=== PATIENT | female | born 1960 | race Caucasian/White ===

== ENCOUNTER 2020-12-19 20:45 | Emergency (ER) | payer BC | END 2020-12-20 00:21 | disposition home or self-care (01) | LOC: ER1 20:45 | DX: Z00.00 Encounter for general adult medical examination without abnormal findings (principal); I51.9 Heart disease, unspecified; Z90.710 Acquired absence of both cervix and uterus | CPT/HCPCS: 99284 ==

== ENCOUNTER → 2021-05-03 | Outpatient (CLI) | payer BC ==
[2021-05-03 12:46] LABS: HEMOGLOBIN 14.6 gm/dl (12.3-15.3); RED BLOOD COUNT 4.88 M/UL (4.00-5.10)
[2021-05-04 07:10] LABS: CALCIUM, SERUM 9.1 mg/dL (8.7-10.3); CREATININE, SERUM 0.93 mg/dL (0.57-1.00); POTASSIUM, SERUM 3.9 mmol/L (3.5-5.2)
== END ==
LOC: LAB 11:50
PROVIDERS: Internal Medicine Cardiovascular Disease
DX: I47.1 Supraventricular tachycardia (principal); R00.2 Palpitations; K44.9 Diaphragmatic hernia without obstruction or gangrene
CPT/HCPCS: 36415; 71046; 80048; 85025

== ENCOUNTER 2021-05-05 11:05 | Outpatient (CLI) | payer BC ==
[~2021-05-05] VITALS: Ht 167.6 cm; Wt 109.3 kg
[2021-05-05] MEDS ORDERED: SIMVASTATIN20 MG PO (11:53)
[2021-05-05] MEDS ORDERED: CELECOXIB200 MG PO (11:53)
[2021-05-05] MEDS ORDERED: PROTONIX 40 MG40 M1 PO (11:54)
[2021-05-05] MEDS ORDERED: CELEXA40 MG PO (11:54)
[2021-05-05] MEDS ORDERED: FISH OIL 1,0001 EACH PO (11:55)
[2021-05-05] MEDS ORDERED: IBUPROFEN800 MG PO (11:55)
[2021-05-05] MEDS ORDERED: LOPRESSOR 25 MG25 MG PO (11:56)
[2021-05-05] MEDS ORDERED: VITAMIN B-12500 MC2 PO (11:57)
[2021-05-06] MEDS ORDERED: RYTHMOL SR225 MG PO (10:12)
[2021-05-06] MEDS ORDERED: PROPAFENONE HC150 MG PO (10:43)
== END 2021-05-06 12:10 | disposition home or self-care (01) ==
LOC: CATH 11:05 → PROG CARE 20:11 → CATH 05-06 12:10
DX: I47.1 Supraventricular tachycardia (principal); I49.1 Atrial premature depolarization; E78.00 Pure hypercholesterolemia, unspecified; F32.A Depression, unspecified; K21.9 Gastro-esophageal reflux disease without esophagitis; Z79.1 Long term (current) use of non-steroidal anti-inflammatories (NSAID); Z79.899 Other long term (current) drug therapy; Z90.710 Acquired absence of both cervix and uterus; F41.9 Anxiety disorder, unspecified
CPT/HCPCS: 93620; 93621; 93623; 99152; 99153; C1730; C1766; J1644; J2250; J3010; J7040

== ENCOUNTER → 2021-07-29 | Outpatient (CLI) | payer BC ==
[~2021-07-29] MED LIST: CELECOXIB200 MG PO; CELEXA40 MG PO; FISH OIL 1,0001 EACH PO; IBUPROFEN800 MG PO; LOPRESSOR 25 MG25 MG PO; PROPAFENONE HC150 MG PO; PROTONIX 40 MG40 M1 PO; RYTHMOL SR225 MG PO; SIMVASTATIN20 MG PO; VITAMIN B-12500 MC2 PO
== END ==
LOC: HEART 5 07-28 13:30
DX: R00.2 Palpitations (principal); I47.1 Supraventricular tachycardia